=== PATIENT | female | born 1995 | race Caucasian/White ===

== ENCOUNTER 2019-04-10 18:52 | Emergency (ER) | payer BC ==
--- NOTE | 2019-04-10 18:59 | EDM.PDOC ---
ED HPI GENERAL MEDICAL PROBLEM - General Stated Complaint: SWALLOWED A PIN Time Seen by Provider: 04/10/19 18:57 Source of Information: Reports: Patient History Limitations: Reports: No Limitations - History of Present Illness INITIAL COMMENTS - FREE TEXT/NARRATIVE: swallow sewing pin about 1 1/2" long with plastic ball one end. occurred hour ago. ED ROS GENERAL - Review of Systems Review Of Systems: ROS reveals no pertinent complaints other than HPI. ED EXAM, GENERAL - Physical Exam Exam: See Below Exam Limited By: No Limitations General Appearance: Alert, WD/WN, No Apparent Distress, Anxious Ears: Hearing Grossly Normal Throat/Mouth: Normal Voice, No Airway Compromise Head: Atraumatic Neck: Non-Tender, Full Range of Motion Respiratory/Chest: No Respiratory Distress Cardiovascular: Regular Rate, Rhythm GI/Abdominal: Soft, Non-Tender Neurological: Alert, Oriented, Normal Cognition, Normal Gait, No Motor/Sensory Deficits Psychiatric: Anxious Skin Exam: Warm, Dry, Normal Color Lymphatic: No Adenopathy Course - Vital Signs Last Recorded V/S: Last Vital Signs Temp 35.9 C 04/10/19 18:55 Pulse 116 H 04/10/19 18:55 Resp 18 04/10/19 18:55 BP 143/89 H 04/10/19 18:55 Pulse Ox 99 04/10/19 18:55 - Orders/Labs/Meds Orders: Active Orders 24 hr Category Date Time Status Chest 1V Frontal [CR] Urgent Exams 04/10/19 18:55 Taken KUB [Abdomen 1V Flat] [CR] Urgent Exams 04/10/19 18:55 Taken - Re-Assessments/Exams Free Text/Narrative Re-Assessment/Exam: 04/10/19 19:[address] Tasha RHODES @ who kindly accepted pt. Departure - Departure Time of Disposition: 19:29 Disposition: DC/Tfer to Acute Hospital 02 Condition: Good Clinical Impression: Foreign body in stomach, initial encounter - Discharge Information Forms: Interfacility Transfer EMTALA - My Orders Last 24 Hours: My Active Orders 04/10/19 18:55 Chest 1V Frontal [CR] Urgent KUB [Abdomen 1V Flat] [CR] Urgent - Assessment/Plan Last 24 Hours: My Active Orders 04/10/19 18:55 Chest 1V Frontal [CR] Urgent KUB [Abdomen 1V Flat] [CR] Urgent
== END 2019-04-10 20:03 ==
LOC: DL.ED 18:52
DX: T18.2XXA Foreign body in stomach, initial encounter (principal)
CPT/HCPCS: 71045; 74018; 99284-25